=== PATIENT | female | born 1995 | race Caucasian/White ===

== ENCOUNTER → 2023-05-09 06:27 | Day surgery (SDC) | payer OTHER, SELFPAY | LOC: GI 06:27 | PROVIDERS: ATTENDING PHYSICIAN Surgery | DX: R19.7 Diarrhea, unspecified (principal) | CPT/HCPCS: 45380; 88305 ==

== ENCOUNTER → 2024-01-15 13:33 | Outpatient (REF) | payer OTHER, SELFPAY | LOC: HWRAD 13:33 | PROVIDERS: ATTENDING PHYSICIAN Nurse Practitioner Family; FAMILY PHYSICIAN Internal Medicine | DX: N94.10 Unspecified dyspareunia (principal) | CPT/HCPCS: 76830; 76856 ==

== ENCOUNTER → 2024-04-03 09:25 | Outpatient (REF) | payer BC, SELFPAY | LOC: RAD 09:25 | PROVIDERS: ATTENDING PHYSICIAN Nurse Practitioner | DX: M71.38 Other bursal cyst, other site (principal) | CPT/HCPCS: 72110 ==

== ENCOUNTER → 2025-01-09 08:47 | Outpatient (REF) | payer OTHER, SELFPAY | LOC: RAD 08:47 | PROVIDERS: ATTENDING PHYSICIAN Nurse Practitioner Family; FAMILY PHYSICIAN Nurse Practitioner Family | DX: Z32.01 Encounter for pregnancy test, result positive (principal) | CPT/HCPCS: 76801; 76817 ==

== ENCOUNTER 2025-01-13 12:25 | Day surgery (SDC) | payer OTHER, SELFPAY ==
[2025-01-13] VITALS (7 sets, daily range): BP systolic 92–112; BP diastolic 47–64; BMI 25.4
[2025-01-13] MEDS: NORMOSOL-R/PLASMALYTE-A 1000 IV (12:27)
[2025-01-13] MEDS: VIBRAMYCIN 270 MG IV (14:11)
== END 2025-01-13 16:40 | disposition home or self-care (01) ==
LOC: SDS 12:25
PROVIDERS: ATTENDING PHYSICIAN Obstetrics & Gynecology
DX: O02.0 Blighted ovum and nonhydatidiform mole (principal); O26.90 Pregnancy related conditions, unspecified, unspecified trimester; N85.4 Malposition of uterus; Z3A.00 Weeks of gestation of pregnancy not specified
CPT/HCPCS: 59820; 76998; 88305

== ENCOUNTER 2025-01-20 12:59 | Emergency (ER) | payer OTHER, SELFPAY ==
[2025-01-20 13:14] VITALS: BP 119/80
[2025-01-20 13:45] LABS: Hematocrit 37.6 % (37.0-47.0); Hemoglobin 13.2 g/dL (12.0-16.0); Mean Corp Hgb Conc. 35.1 g/dL (33.0-37.0); Mean Corpuscular Volume 86.6 fL (81.0-99.0); Nucleated Red Blood Cells % 0 %; Platelet Count 218 10^3/uL (130-400); Red Cell Dist. Width 12.3 % (11.5-14.5)
[2025-01-20 13:59] LABS: ALT (SGPT) 17 U/L (0-35); AST (SGOT) 19 U/L (14-36); Albumin 4.4 g/dl (3.5-5.0); Alkaline Phosphatase 70 U/L (38-126); Blood Urea Nitrogen 10 mg/dl (7-17); Calcium 9.0 mg/dl (8.4-10.2); Carbon Dioxide 26 mmol/L (22-30); Chloride 107 mmol/L (98-107); Glucose 89 mg/dl (70-99); Potassium 4.3 mmol/L (3.5-5.1); Sodium 139 mmol/L (135-145); Total Protein 7.1 g/dl (6.3-8.2); eGFR > 60.00
[2025-01-20 14:13] LABS: Beta HCG Quantitative 1526.60 mIU/ml
[2025-01-20 14:22] LABS: Urine Character Clear (Clear)
[2025-01-20 14:41] LABS: Urine Squamous Cell >30 /LPF (Few)
== END 2025-01-20 16:44 ==
LOC: EMR 12:59
PROVIDERS: Emergency Medicine
DX: Z53.21 Procedure and treatment not carried out due to patient leaving prior to being seen by health care provider (principal)
CPT/HCPCS: 80053; 81003; 81015; 84702; 85025; 87086

== ENCOUNTER 2025-01-21 16:59 | Observation (INO) | payer OTHER, SELFPAY ==
[2025-01-21 08:44] VITALS: BP 113/71
--- NOTE | 2025-01-21 09:05 | ED.GENMED ---
History of Present Illness
General
Chief Complaint: Post Operative Problem(s)
Source: patient and records
Exam Limitations: none
Time Seen by Provider: 01/21/25 08:56
Nursing documentation reviewed up to this point in time: agreed with
History of Present Illness
History of Present Illness:
29-year-old female with no significant chronic medical issues presents to the ER for evaluation of abdominal pain and vaginal discharge. Patient notably had D&E on 01/13/[address] Rios due to molar . She says that a few days ago
she started having abdominal pain worse and even the first day or 2 after operation. She describes cramping pain with occasional sharp pains radiating towards the right. She says intensity is consistently 7/10 with occasional increases. She says
she has had associated vaginal discharge which she says is thick and green-colored; she says the discharge is mainly with wiping and she has not required any pads or noted heavier discharge. Denies vaginal bleeding. She has not noted fever or
chills. Denies any other acute complaints. She says that initially she was seen in urgent care for this and was referred to the ER after being given a single dose of Augmentin; she says that she came transient last night but due to long wait times
decided to come back this morning.
Past History
Past History
ED Past Medical History: Other (Ovarian cysts)
ED Past Surgical History: None
Social History
Tobacco: Smoker
Alcohol: Occasional
Drug: None
Personal: Single
Living: with family
Employment: Student
Family History
Family History: Other
Review of Systems
Review of Systems
All Other Systems: ROS reviewed and negative except as documented in HPI and ROS
Constitutional: Denies fever or chills
Respiratory: Denies trouble breathing
Cardiac: Denies chest pain
ABD/GI: Reports abdominal pain; Denies nausea or vomiting
: Reports discharge; Denies flank pain or bleeding
Musculoskeletal: Denies neck pain
Neurological: Denies headache
Phy Exam
Physical Exam
Physical Exam:
General: Awake, alert; no acute distress
Head: Normocephalic, atraumatic
Eyes: Conjunctiva normal
Throat: Airway intact, handling secretions
Neck: Trachea midline, supple without meningismus
Lungs: Breathing comfortably no distress, no tachypnea or hypoxia and no evidence of cyanosis
Heart: Regular rate
Abd: Soft, non distended, tender to palpation in the suprapubic region
Neuro: Grossly intact
Skin: Warm and dry
Extremities: No edema in extremities, warm and well-perfused
Scores
Heart Failure Risk
Heart Failure Risk Score: Not Applicable
Heart Score for Chest Pain Patients
STEMI patient?: Not applicable
Withdrawal Assessment of Alcohol
Withdrawal Assessment Completed?: Not applicable
Course
Orders/Labs/Results
Orders:
Orders
01/21/25 09:03
LOT TECHNICIAN CONSULT Urgent
Consulting Provider: Stefanie Bernardo
Was physician already notified: Yes
US Pelvis W Transvag Combined Urgent
Comment:
Reason For Exam: pelvic pain, discharge s/p D+E
01/21/25 09:04
Test Result ONCE
01/21/25 09:35
Beta HCG Quantitative Urgent
Is this a screen?: No
Complete Blood Count/With Diff Urgent
Comprehensive Metabolic Panel Urgent
HCG, Serum Qualitative Screen Urgent
01/21/25 10:13
Add On- LAB Urgent
Tests Added?: HCG quant
Abnormal Lab Results
01/21/25
09:35
RBC 4.15 L 10^6/uL
(4.20-5.40)
Hct 36.5 L %
(37.0-47.0)
MPV 10.8 H fL
(7.4-10.4)
01/21/25 09:35
01/21/25 09:35
Vital Signs
Initial and Last Documented VS:
Initial Vital Signs
Temp Pulse Resp BP Pulse Ox
37.6 C 88 18 113/71 98
01/21/25 08:44 01/21/25 08:44 01/21/25 08:44 01/21/25 08:44 01/21/25 08:44
Last Documented Vital Signs
Temp Pulse Resp BP Pulse Ox
37.6 C 88 18 113/71 98
01/21/25 08:44 01/21/25 08:44 01/21/25 08:44 01/21/25 08:44 01/21/25 09:09
MDM/Problems Addressed
Differential Diagnosis Includes:
PID/endometritis, STI, BV
MDM/Problems Addressed:
29-year-old female presents to the ER status post D&E for molar on 01/13/2025 for evaluation of abdominal pain and vaginal discharge. Vitals and exam as above. Plan to check labs, hCG. Check pelvic ultrasound. Case discussed with
LOT TECHNICIAN for consultation given recent procedure.
Labs reviewed: CBC unremarkable, CMP clinically significant abnormalities. hCG downtrending, 1000 today compared to 1500 previous. Pelvic ultrasound shows small amount of complex fluid in the endometrial canal�correlate for signs of endometritis.
No retained products. Discussed with LOT TECHNICIAN who will evaluate.
*Radiology
Radiology exam reviewed: radiology read reviewed
*Pulse Oximetry
SaO2: 98
Patient hypoxic: no (98%)
*Critical Care Note
Total Time (30-74mins, 75-104mins- exclusive of procedures): Not Applicable
Data Reviewed
Review of Other/Old Records Reveals: Labs and Records
Source: patient and records
Patient Management
Discussion with other providers: Clearing House Clerk (Discussed with LOT TECHNICIAN)
ED Attending Note
-
Portions of this chart may have been created with voice recognition software.� Occasional wrong word or��sound alike� substitutions may have occurred due to the inherent limitations of voice recognition software.
Discharge Plan
Departure
Prescriptions:
No Action
No Current Medications
0
Referrals:
La Castañeda CRNP [Family Provider, Family Practice]
Interventions
Interventions:
*Risk Screen - Suicide Last Done: 01/21/25 09:27
*General Assessment Last Done: 01/21/25 09:27
*Neglect/Abuse Screening Last Done: 01/21/25 09:27
*ED- Fall Risk Assessment Last Done: 01/21/25 09:27
*ED COVID-19 Vaccine History Last Done: 01/21/25 09:27
*ED Influenza Vaccine History Last Done: 01/21/25 09:27
ED-Skin Assessment Last Done: 01/21/25 09:27
Discharge Date and Time
Print Language: ESTONIAN
[2025-01-21 09:26] VITALS: BMI 25.7
[2025-01-21 09:44] LABS: Hematocrit 36.5 % (37.0-47.0); Hemoglobin 12.5 g/dL (12.0-16.0); Mean Corp Hgb Conc. 34.2 g/dL (33.0-37.0); Mean Corpuscular Volume 88.0 fL (81.0-99.0); Nucleated Red Blood Cells % 0 %; Platelet Count 196 10^3/uL (130-400); Red Cell Dist. Width 12.3 % (11.5-14.5)
[2025-01-21 09:53] LABS: HCG, Serum Qualitative Screen Positive
[2025-01-21 09:58] LABS: AST (SGOT) 19 U/L (14-36); Albumin 3.8 g/dl (3.5-5.0); Alkaline Phosphatase 50 U/L (38-126); Blood Urea Nitrogen 9 mg/dl (7-17); Calcium 9.1 mg/dl (8.4-10.2); Carbon Dioxide 25 mmol/L (22-30); Chloride 107 mmol/L (98-107); Estimated Creatinine Clearance 118 ml/min; Glucose 96 mg/dl (70-99); Potassium 3.9 mmol/L (3.5-5.1); Sodium 136 mmol/L (135-145); Total Protein 6.4 g/dl (6.3-8.2); eGFR > 60.00
[2025-01-21 10:49] LABS: Beta HCG Quantitative 1042.90 mIU/ml
[2025-01-21 11:16] LABS: ALT (SGPT) < 10 U/L (0-35)
[2025-01-21 13:56] VITALS: BP 105/72
--- NOTE | 2025-01-21 14:24 | HP.FOC2 ---
Focused History & Physical
Chief Complaint
HPI:
Chief Complaint: Full H&P dictated
29 y/o presents 8 days S/P S&E for probable molar at 8 wks to ED with abdominal pain/severe cramps, chills and green vaginal discharge for last 2 days. Patient felt she did well after procedure until yesterday AM, started to have
increased pain and vaginal discharge. She has had chills off/on, but denies fever. Went to Urgent Care, was told she should be evaluated in ED. They gave her one dose of Augmentin. She felt wait was too long in ED as she had child welfare assistant issues and
left without being seen, returned this AM.
Pt denies vomiting, has been nauseated. Notes loose BM's, but says that happens whenever she gets menstrual cramps as well. Again, notes very little bleeding. No vaginal odor or itching.
CBC with normal white count. U/S neg for retained POC, but fluid noted, per radiologist concerning for endometritis.
HPI / Indication for Planned Procedure:
Relevant Past Medical History: Other (IBS)
Relevant Family History: Negative
Relevant Past Surgical History: Positive for (oral surgery, D&E, SAVD)
Review of Systems
Review of Pertinent Systems: All Systems Negative Except for the Following Positives (as above)
Medication
See Medication form for detailed medications: Yes
Medication List (including Herbals & OTC):
No Meds [No Current Medications] 01/12/25
Medications Reviewed: Yes
Allergies and Reactions
Patient has Allergies: No
Noted Allergies and Reactions:
Allergy/AdvReac Type Severity Reaction Status Date / Time
honeydew Allergy Anaphylaxis Verified 01/20/25 13:13
canalope Allergy Anaphylaxis Uncoded 01/20/25 13:13
Pertinent Physical Exam
All Other Systems: Negative
Head/Neck: Normal
Lungs: Normal
Heart: Normal
Abdomen: Normal
Extremities: Normal
Neurological: Normal
Other: Pelvic-see dictation
Diagnosis / Assessment
Post D&E endometritis
Plan / Procedure
Admit, Unasyn, check cervical cultures
[2025-01-21] MEDS: UNASYN IV ×2 (15:41→22:15)
[2025-01-21 15:49] VITALS: BP 103/73
[2025-01-21 19:00] VITALS: BP 111/71
[2025-01-21 19:44] VITALS: BMI 25.2
[2025-01-21] MEDS: MOTRIN 600 MG PO (20:38)
[2025-01-21 23:05] VITALS: BP 114/66
[2025-01-22] MEDS: UNASYN IV ×2 (03:45→11:08)
[2025-01-22 06:31] LABS: Hematocrit 38.2 % (37.0-47.0); Hemoglobin 13.2 g/dL (12.0-16.0); Mean Corp Hgb Conc. 34.6 g/dL (33.0-37.0); Mean Corpuscular Volume 88.4 fL (81.0-99.0); Nucleated Red Blood Cells % 0 %; Platelet Count 192 10^3/uL (130-400); Red Cell Dist. Width 12.2 % (11.5-14.5)
[2025-01-22 07:02] VITALS: BP 97/58
--- NOTE | 2025-01-22 12:17 | CM ---
Addendum entered by Milly Thakur 01/22/25 12:25:
Per patient she does not need transportation at the time of discharg
Original Note:
CM reviewed chart and spoke with patient at bedside.
OBS form reviewed with patient and pt has a copy at bedside. No questions at this time 12:00 noon
Lives in a 1 story home with 4 year old child. No DME
PLOF Independent, no AD needed for ambulation
PCP Dr. La Castañeda
RX plan yes
Pharmacy [facility] on [address]
NO hx of VN nor SNF per patient
DCP is for her to go home without services when medically stable
CM will continue to follow up for dcp needs
--- NOTE | 2025-01-22 14:41 | W.PN.OBG.DWH ---
Today's Communication / Plan
-
D/c home on Augmentin
Assessment/Plan
-
29yo HD#2 for Endometritis, POD#9 s/p D&E for molar
-patient without fever or leukocytosis
-clinically improved after 24hrs of IV antibiotics
-discussed that she is stable for d/c home today. Reviewed s/sx to call regarding. Will do a 7 day course of Augmentin. Rx sent to pharmacy.
-patient already has post-op visit scheduled in office next week.
Subjective Data
-
feels much better. No longer having bad cramping or abnormal discharge. Really feels okay. No BM today. tolerating a regular diet. No f/c/n/v.
Objective Data
-
Laboratory Results
01/22/25 05:58
01/21/25 09:35
Vital Signs
Temp Pulse Resp BP Pulse Ox
98.5 F 92 20 97/58 97
01/22/25 07:02 01/22/25 07:02 01/22/25 07:02 01/22/25 07:02 01/22/25 07:02
Gen: nad well appearing
CV: rrr
RESP: cta b/l
Abd: soft, nt, nd, no r/g
[2025-01-22 15:15] VITALS: BP 105/71
== END 2025-01-22 16:34 | disposition home or self-care (01) ==
LOC: 2 NORTH 16:59
PROVIDERS: ADMITTING PHYSICIAN Obstetrics & Gynecology; EMERGENCY PHYSICIAN Emergency Medicine; FAMILY PHYSICIAN Nurse Practitioner Family
DX: G89.18 Other acute postprocedural pain (principal); R10.30 Lower abdominal pain, unspecified; R10.20 Pelvic and perineal pain unspecified side; N89.8 Other specified noninflammatory disorders of vagina; F17.200 Nicotine dependence, unspecified, uncomplicated; N71.9 Inflammatory disease of uterus, unspecified; R18.8 Other ascites; K58.9 Irritable bowel syndrome, unspecified; Z91.018 Allergy to other foods
CPT/HCPCS: 76830; 76856; 80053; 84702; 84703; 85025; 87070; 99285; G0378